=== PATIENT | male | born 1960 | race Caucasian/White ===

== ENCOUNTER → 2016-07-03 | Outpatient (CLI) | payer OTHER ==
[2016-07-03 10:19] LABS: CHLORIDE,CL 107 mmol/L (98-110); SODIUM,NA 142 mmol/L (136-146)
== END | disposition home or self-care (01) ==
LOC: MW.CHRC 09:17
PROVIDERS: ATTEND Family Medicine
DX: I10 Essential (primary) hypertension (principal); E78.00 Pure hypercholesterolemia, unspecified; G40.309 Generalized idiopathic epilepsy and epileptic syndromes, not intractable, without status epilepticus; E03.9 Hypothyroidism, unspecified
CPT/HCPCS: 36415; 80053; 80061; 83036; 99215

== ENCOUNTER → 2016-08-06 | Outpatient (CLI) | payer OTHER | LOC: MW.CHNEURO 08:00 | PROVIDERS: ATTEND Psychiatry & Neurology Neuromuscular Medicine | DX: R56.9 Unspecified convulsions (principal); G62.9 Polyneuropathy, unspecified | CPT/HCPCS: 99204 ==

== ENCOUNTER 2016-12-06 10:33 | Day surgery (SDC) | payer OTHER ==
[~2016-12-06 10:33] MED LIST: Lactated Ringers 1,000 ML IV SCH; Midazolam 1 MG/ML 2 ML SDV ONE; Propofol 200 MG/20 ML SDV ONE
--- NOTE | 2016-12-06 12:39 | PCM.PREANE ---
Preanesthetic Assessment - Anesthesia/Transfusion/Family Hx Anesthesia History: Prior Anesthesia Reaction Other Type of Anesthesia Reaction Comment: "when waking up from anesthesia, I need to be sitting up" Transfusion History: No Prior Transfusion(s) - Review of Systems General: No Symptoms - Physical Assessment Height: 1.88 m Weight: 125.192 kg ASA Class: 3 Mental Status: Alert & Oriented x3 Airway Class: Mallampati = 1 Dentition: Reports: [place](s) ROM/Head Extension: Full Lungs: Clear to Auscultation, Normal Respiratory Effort Cardiovascular: Regular Rate, Regular Rhythm - Allergies Allergies/Adverse Reactions: Allergies Allergy/AdvReac Type Severity Reaction Status Date / Time No Known Allergies Allergy Verified 09/03/13 07:04 - Anesthesia Plan Pre-Op Medication Ordered: None - Acknowledgements Anesthesia Type Planned: MAC Pt an Appropriate Candidate for the Planned Anesthesia: Yes Alternatives and Risks of Anesthesia Discussed w Pt/Guardian: Yes Pt/Guardian Understands and Agrees with Anesthesia Plan: Yes Additional Comments: CAD with stent placed 10 yr ago, last ASA yesterday, on no seizure meds, last seizure June of this year. Wants to besi sitting when induced and upon awakening. PreAnesthesia Questionnaire HEENT History: Reports: Other (See Below) Other HEENT History: wears glasses Cardiovascular History: Reports: CAD, High Cholesterol, Hypertension, Stents Respiratory History: Reports: None Gastrointestinal History: Reports: Colon Polyp Genitourinary History: Reports: None Neurological History: Reports: Seizure Other Neuro History: last seizure in june 2016 Psychiatric History: Reports: Anxiety Endocrine/Metabolic History: Reports: Hypothyroidism, Obesity/BMI 30+ Oncologic (Cancer) History: Reports: Colon, Lung - Past Surgical History Head Surgeries/Procedures: Reports: None Cardiovascular Surgical History: Reports: Coronary Artery Stent Other Respiratory Surgeries/Procedures: hx wedge resection of lung for cancer GI Surgical History: Reports: Colon, Colonoscopy, Hernia, Abdominal, Hernia, Inguinal, Other (See Below) Other GI Surgeries/Procedures: inguinal hernia repair x2, umbilical hernia repair, partial colectomy with coloproctostomy for colon cancer Male Surgical History: Reports: Vasectomy Musculoskeletal Surgical History: Reports: Other (See Below) Other Musculoskeletal Surgeries/Procedures:: rt bicep tendon repair - SUBSTANCE USE Smoking Status *Q: Former Smoker Tobacco Use Within Last Twelve Months: No Days Per Week of Alcohol Use: 0 Number of Drinks Per Day: 0 Total Drinks Per Week: 0 Recreational Drug Use History: No - HOME MEDS Home Medications: Home Meds Aspirin [Children's Aspirin] 81 mg PO DAILY 09/02/13 [History] Furosemide [Lasix] 40 mg PO DAILY 09/02/13 [History] Levothyroxine 125 mcg PO ACBRK 09/02/13 [History] Metoprolol Succinate [Toprol XL] 50 mg PO BID 09/02/13 [History] Ramipril [Altace] 10 mg PO ACBRK 09/02/13 [History] atorvaSTATin [Lipitor] 40 mg PO BEDTIME 09/02/13 [History] Docusate Sodium [Dulcolax Stool Softener] 1 tab PO DAILY 12/04/16 [History] Multivits-Minerals/FA/Lycopene [One Daily Men's Health Tablet] 1 tab PO DAILY [History] - CURRENT (IN HOUSE) MEDS Current Meds: Current Medications Lactated Ringer's (Ringers, Lactated) 1,000 mls @ 125 mls/hr IV ASDIRECTED DIAN Discontinued Medications Midazolam HCl (Versed 1 Mg/Ml) Confirm Administered Dose 2 mg .ROUTE .STK-MED ONE Stop: 12/06/16 10:22 Propofol (Diprivan 20 Ml) Confirm Administered Dose 400 mg .ROUTE .STK-MED ONE Stop: 12/06/16 10:21
[2016-12-06] MEDS ORDERED: Propofol 200 MG/20 ML SDV ONE (14:19)
--- NOTE | 2016-12-06 14:48 | PCM.OPNOTE ---
- General Post-Op/Procedure Note Date of Surgery/Procedure: 12/06/16 Operative Procedure(s): Colonoscopy with ascending colon biopsy Pre Op Diagnosis: Personal history of colon polyps Post-Op Diagnosis: Nonspecific colitis. Mild diverticulosis. Anesthesia Technique: MAC (ASA III) Primary Surgeon: Ean Pierre Interior Decorator Painting: Swetha Borjas Fluid Replacement, Intraop: 1,200 Condition: Good Free Text/Narrative:: Dictation [id number] CPT CODE [id number]
--- NOTE | 2016-12-06 14:55 | PCM.POSTAN ---
POST ANESTHESIA ASSESSMENT - MENTAL STATUS Mental Status: Alert, Oriented - RESPIRATORY Respiratory Status: Respiratory Rate WNL, Airway Patent - CARDIOVASCULAR CV Status: Pulse Rate WNL - GASTROINTESTINAL GI Status: No Symptoms - POST OP HYDRATION Hydration Status: Adequate & Stable
--- NOTE | 2016-12-06 14:55 | PCM48HPAN ---
Post Anesthesia Note - EVALUATION WITHIN 48HRS OF ANESTHETIC Vital Signs in Normal Range: Yes Patient Participated in Evaluation: Yes Respiratory Function Stable: Yes Airway Patent: Yes Cardiovascular Function Stable: Yes Hydration Status Stable: Yes Pain Control Satisfactory: Yes Nausea and Vomiting Control Satisfactory: Yes Mental Status Recovered: Yes
[2016-12-06] MEDS ORDERED: Lactated Ringers 1,000 ML IV SCH (15:00)
[2016-12-06 15:37] VITALS: BP 145/86
--- NOTE | 2016-12-06 19:41 | OR ---
SURGEON: Ean Pierre M.D. DATE OF PROCEDURE: 12/06/2016 OPERATION PERFORMED: Colonoscopy with cecal biopsy. ANESTHESIA: MAC. ASA CLASSIFICATION: III. PREOPERATIVE DIAGNOSIS: Personal history of colon cancer. POSTOPERATIVE DIAGNOSES: 1. Nonspecific changes in the cecum. 2. Mild diverticulosis. DESCRIPTION OF PROCEDURE: The patient was taken to the endoscopy room, positioned on the endoscopy table in the left lateral decubitus position. Time-out was called for appropriate identification of the patient and procedure. Monitored anesthesia care was provided. The colonoscope was inserted into the rectum and advanced with moderate difficulty to the cecum where the colonoscope was retroflexed to visualize the ascending colon from below. The colonoscope was then straightened and slowly withdrawn. Cecum does show some mild inflammatory changes and biopsies of this area were taken. The cecum, ascending colon, hepatic flexure, transverse colon, splenic flexure, descending colon, sigmoid colon, and rectum were very well visualized. Other than some minor diverticular changes, no other lesions were identified. There was no evidence of inflammatory bowel disease. No angiodysplasia was noted. As the colonoscope was withdrawn through the rectum, the anastomosis was easily seen. This was widely patent and shows no evidence of recurrent disease. Once the colonoscope was withdrawn to the distal rectum, it was retroflexed to visualize the anal orifice from above. No tumors, polyps, or acute hemorrhoidal changes were noted. The colonoscope was then straightened, the rectum aspirated, and the colonoscope removed. The patient tolerated the procedure well and was taken to recovery room in stable condition. MANUEL LARA /[id number]
== END 2016-12-06 15:20 | disposition home or self-care (01) ==
LOC: MW.SDS 10:33
PROVIDERS: ATTEND Surgery
DX: Z12.11 Encounter for screening for malignant neoplasm of colon (principal); K52.9 Noninfective gastroenteritis and colitis, unspecified; K57.30 Diverticulosis of large intestine without perforation or abscess without bleeding; I25.10 Atherosclerotic heart disease of native coronary artery without angina pectoris; I10 Essential (primary) hypertension; E78.00 Pure hypercholesterolemia, unspecified; F41.9 Anxiety disorder, unspecified; E03.9 Hypothyroidism, unspecified; Z79.82 Long term (current) use of aspirin; Z79.899 Other long term (current) drug therapy; Z98.890 Other specified postprocedural states; Z98.52 Vasectomy status; Z90.49 Acquired absence of other specified parts of digestive tract; Z87.891 Personal history of nicotine dependence
CPT/HCPCS: 45380; 88305; J2250; 00810; J2704

== ENCOUNTER 2017-05-22 00:02 | Emergency (ER) | payer OTHER ==
[2017-05-22] MEDS ORDERED: Aspirin 81 MG Tab.Chew PO ONE (00:08)
--- NOTE | 2017-05-22 00:10 | EDM.PDOC ---
ED HPI GENERAL MEDICAL PROBLEM - General Chief Complaint: Chest Pain Stated Complaint: CHEST PAIN Time Seen by Provider: 05/22/17 00:09 Source of Information: Reports: Patient - History of Present Illness INITIAL COMMENTS - FREE TEXT/NARRATIVE: HISTORY AND PHYSICAL: History of present illness: [Patient presents with chest pain/discomfort rates 3 out of 10 no radiation arm neck or jaw no diaphoresis. Redness of breath but he does note that the pain is worse on deep inspiration he states it is similar to pleurisy he has had in the past no fever nausea vomiting chills sweats no headache dizziness or palpitation no bowel or urine symptoms ] I can worsen some chest discomfort with palpation of the anterior chest wall Patient has stent history, stents performed 10 years prior in [place] by Dr. Murphy Review of systems: As per history of present illness and below otherwise all systems reviewed and negative. Past medical history: As per history of present illness and as reviewed below otherwise noncontributory. Surgical history: As per history of present illness and as reviewed below otherwise noncontributory. Social history: No reported history of drug or alcohol abuse. Family history: As per history of present illness and as reviewed below otherwise noncontributory. Physical exam: HEENT: Atraumatic, normocephalic, pupils reactive, negative for conjunctival pallor or scleral icterus, mucous membranes moist, throat clear, neck supple, nontender, trachea midline. Lungs: Clear to auscultation, breath sounds equal bilaterally, I can reproduce some pain with palpation of anterior chest wall Heart: S1S2, regular, negative for clicks, rubs, or JVD. Abdomen: Soft, nondistended, nontender. Negative for masses or hepatosplenomegaly. Negative for costovertebral tenderness. Pelvis: Stable nontender. Genitourinary: Deferred. Rectal: Deferred. Extremities: Atraumatic, negative for cords or calf pain. Neurovascular unremarkable. Neuro: Awake, alert, oriented. Cranial nerves II through XII unremarkable. Cerebellum unremarkable. Motor and sensory unremarkable throughout. Exam nonfocal. Diagnostics: [CBC CMP troponin EKG Chest 1 view ] Therapeutics: [Normal saline 500 mL per hour Aspirin 324 mg chewable 30 mg IV Nitroglycerin 0.4 sublingual Patienis advised and offered admission for observation telemetry and cardiac rule out due to some improvement of pain with nitroglycerin however he flatly refuses stating that he has served on the EMS and he is aware of cardiac symptoms he would like to follow with his primary care doctor small and ultimate follow-up with our production proofreader. He refuses admission stating he will return if symptoms persist or worsen. ] Impression: Pleuritic chest pain improved Hypertensive emergency-resolved Atypical chest pain component is improved somewhat with nitroglycerin's may be due to the lowering of blood pressure, however it is recommended that the patient be admitted to follow enzymes he flatly refuses stating he'll return if symptoms persist or worsen Definitive disposition and diagnosis as appropriate pending reevaluation and review of above. chest Pain Score (Numeric/FACES): 8 - Related Data Allergies Allergy/AdvReac Type Severity Reaction Status Date / Time No Known Allergies Allergy Verified 05/22/17 00:12 Home Meds: Home Meds Aspirin [Children's Aspirin] 81 mg PO DAILY 09/02/13 [History] Furosemide [Lasix] 40 mg PO DAILY 09/02/13 [History] Levothyroxine 125 mcg PO DAILY 09/02/13 [History] Metoprolol Succinate [Toprol XL] 25 mg PO BID 09/02/13 [History] Ramipril [Altace] 10 mg PO DAILY 09/02/13 [History] atorvaSTATin [Lipitor] 40 mg PO BEDTIME 09/02/13 [History] Multivits-Minerals/FA/Lycopene [One Daily Men's Health Tablet] 1 tab PO DAILY [History] Cholecalciferol (Vitamin D3) [Vitamin D3] 5,000 unit PO DAILY 05/22/17 [History] Cyanocobalamin (Vitamin B-12) [Vitamin B-12] 1 tab PO DAILY 05/22/17 [History] Keybiotics 05/22/17 [History] Vitamin K2 90 mcg PO DAILY 05/22/17 [History] Past Medical History HEENT History: Reports: Other (See Below) Other HEENT History: wears glasses Cardiovascular History: Reports: CAD, High Cholesterol, Hypertension, Stents Respiratory History: Reports: None Gastrointestinal History: Reports: Colon Polyp Genitourinary History: Reports: None Neurological History: Reports: Seizure Other Neuro History: last seizure in june 2016 Psychiatric History: Reports: Anxiety Endocrine/Metabolic History: Reports: Hypothyroidism, Obesity/BMI 30+ Oncologic (Cancer) History: Reports: Colon, Lung - Past Surgical History Head Surgeries/Procedures: Reports: None Cardiovascular Surgical History: Reports: Coronary Artery Stent Other Respiratory Surgeries/Procedures: hx wedge resection of lung for cancer GI Surgical History: Reports: Colon, Colonoscopy, Hernia, Abdominal, Hernia, Inguinal, Other (See Below) Other GI Surgeries/Procedures: inguinal hernia repair x2, umbilical hernia repair, partial colectomy with coloproctostomy for colon cancer Male Surgical History: Reports: Vasectomy Musculoskeletal Surgical History: Reports: Other (See Below) Other Musculoskeletal Surgeries/Procedures:: rt bicep tendon repair Social & Family History - Tobacco Use Smoking Status *Q: Former Smoker Used Tobacco, but Quit: Yes Month Tobacco Last Used: quit smoking over 8 yrs ago - Alcohol Use Days Per Week of Alcohol Use: 0 Number of Drinks Per Day: 0 Total Drinks Per Week: 0 - Recreational Drug Use Recreational Drug Use: No Drug Use in Last 12 Months: No ED ROS GENERAL - Review of Systems Review Of Systems: ROS reveals no pertinent complaints other than HPI. ED EXAM, GENERAL - Physical Exam Exam: See Below Course - Vital Signs Last Recorded V/S: Last Vital Signs Temp 98.8 F 05/22/17 00:02 Pulse 84 05/22/17 00:39 Resp 17 05/22/17 00:39 BP 150/80 H 05/22/17 00:39 Pulse Ox 95 05/22/17 00:39 - Orders/Labs/Meds Orders: Active Orders 24 hr Category Date Time Status EKG Documentation Completion [RC] STAT Care 05/22/17 00:08 Active Chest 1V Frontal [CR] Stat Exams 05/22/17 00:08 Taken UA W/MICROSCOPIC [URIN] Stat Lab 05/22/17 00:08 Ordered Sodium Chloride 0.9% [Normal Saline] 500 ml Med 05/22/17 00:45 Active IV .BOLUS Medication Orders Sodium Chloride (Normal Saline) 500 mls @ 125 mls/hr IV .BOLUS DIAN Last Admin: 05/22/17 00:34 Dose: 125 mls/hr Labs: Laboratory Tests 05/22/17 05/22/17 05/22/17 Range/Units 00:18 00:18 00:18 WBC 11.29 H (4.0-11.0) K/uL RBC 4.81 (4.50-5.90) M/uL Hgb 14.9 (13.0-17.0) g/dL Hct 44.5 (38.0-50.0) % MCV 92.5 (80.0-98.0) fL MCH 31.0 (27.0-32.0) pg MCHC 33.5 (31.0-37.0) g/dL RDW Std Deviation 45.2 (28.0-62.0) fl RDW Coeff of Brii 13 (11.0-15.0) % Plt Count 163 (150-400) K/uL MPV 10.10 (7.40-12.00) fL Neut % (Auto) 77.7 (48.0-80.0) % Lymph % (Auto) 11.3 L (16.0-40.0) % Schleicher % (Auto) 9.8 (0.0-15.0) % Eos % (Auto) 0.9 (0.0-7.0) % Baso % (Auto) 0.3 (0.0-1.5) % Neut # (Auto) 8.8 H (1.4-5.7) K/uL Lymph # (Auto) 1.3 (0.6-2.4) K/uL Schleicher # (Auto) 1.1 H (0.0-0.8) K/uL Eos # (Auto) 0.1 (0.0-0.7) K/uL Baso # (Auto) 0.0 (0.0-0.1) K/uL Nucleated RBC % 0.0 /100WBC Nucleated RBCs # 0 K/uL INR 0.98 Sodium 142 (136-146) mmol/L Potassium 4.2 (3.5-5.1) mmol/L Chloride 106 (98-110) mmol/L Carbon Dioxide 25 (21-31) mmol/L BUN 16 (6.0-23.0) mg/dL Creatinine 1.0 (0.6-1.5) mg/dL Est Cr Clr Drug Dosing 92.48 mL/min Estimated GFR (MDRD) > 60.0 ml/min Glucose 89 (60-110) mg/dL Calcium 10.1 (8.8-10.8) mg/dL Total Bilirubin 0.4 (0.1-1.5) mg/dL AST 24 (5-40) IU/L ALT 27 (8-54) IU/L Alkaline Phosphatase 99 (40-150) Troponin I < 0.10 (0.0-0.29) NG/ML Total Protein 8.0 (6.0-8.0) g/dL Albumin 4.5 (3.5-5.0) g/dL Globulin 3.5 (2.0-3.5) g/dL Albumin/Globulin Ratio 1.3 (1.3-2.8) Meds: Medications Generic Name Dose Route Start Last Admin Trade Name Freq PRN Reason Stop Dose Admin Sodium Chloride 500 mls @ 125 mls/hr 05/22/17 00:45 05/22/17 00:34 Normal Saline IV 125 mls/hr .BOLUS DIAN Administration Discontinued Medications Generic Name Dose Route Start Last Admin Trade Name Freq PRN Reason Stop Dose Admin Aspirin 324 mg 05/22/17 00:08 05/22/17 00:23 Aspirin PO 05/22/17 00:09 324 mg ONETIME ONE Administration Sodium Chloride 1,000 mls @ 125 mls/hr 05/22/17 00:15 Normal Saline IV STAT DIAN Nitroglycerin 0.4 mg 05/22/17 00:14 05/22/17 00:35 Nitrostat SL 0.4 mg Q5M PRN Administration Chest Pain Departure - Departure Time of Disposition: 01:50 Disposition: Home, Self-Care 01 Condition: Fair Clinical Impression: Hypertensive emergency, Atypical chest pain, Pleuritic chest pain - Discharge Information Forms: ED Department Discharge Additional Instructions: Medication as prescribed-Cataflam prescribed for pleuritic chest pain As you have declined admission certainly if symptoms were to persist or worsen radiation arm neck or jaw please return to emergency room for evaluation Follow-up with Dr. zhou within 2 weeks The following information is given to patients seen in the emergency department who are being discharged to home. This information is to outline your options for follow-up care. We provide all patients seen in our emergency department with a follow-up referral. The need for follow-up, as well as the timing and circumstances, are variable depending upon the specifics of your emergency department visit. If you don't have a primary care physician on staff, we will provide you with a referral. We always advise you to contact your personal physician following an emergency department visit to inform them of the circumstance of the visit and for follow-up with them and/or the need for any referrals to a consulting specialist. The emergency department will also refer you to a specialist when appropriate. This referral assures that you have the opportunity for follow-up care with a specialist. All of these measure are taken in an effort to provide you with optimal care, which includes your follow-up. Under all circumstances we always encourage you to contact your private physician who remains a resource for coordinating your care. When calling for follow-up care, please make the office aware that this follow-up is from your recent emergency room visit. If for any reason you are refused follow-up, please contact the [facility] emergency department at and asked to speak to the emergency department charge nurse. - My Orders Last 24 Hours: My Active Orders 05/22/17 00:08 EKG Documentation Completion [RC] STAT Chest 1V Frontal [CR] Stat UA W/MICROSCOPIC [URIN] Stat 05/22/17 00:45 Sodium Chloride 0.9% [Normal Saline] 500 ml IV .BOLUS - Assessment/Plan Last 24 Hours: My Active Orders 05/22/17 00:08 EKG Documentation Completion [RC] STAT Chest 1V Frontal [CR] Stat UA W/MICROSCOPIC [URIN] Stat 05/22/17 00:45 Sodium Chloride 0.9% [Normal Saline] 500 ml IV .BOLUS
[2017-05-22] MEDS ORDERED: Sodium Chloride 0.9% 1,000 ML IV SCH (00:15)
[2017-05-22] MEDS: Nitroglycerin 0.4 MG Tab.SL SL PRN ×3 (00:24→00:35)
[2017-05-22] MEDS ORDERED: Sodium Chloride 0.9% 500 ML IV SCH (00:45)
[2017-05-22 01:32] LABS: CHLORIDE,CL 106 mmol/L (98-110); SODIUM,NA 142 mmol/L (136-146)
[2017-05-22] MEDS ORDERED: Ketorolac 30 MG/ML SDV IVPUSH ONE (01:46)
[2017-05-22 02:25] VITALS: BP 150/99
--- NOTE | 2017-05-22 14:35 | CR ---
EXAM DATE: 05/22/17 PATIENT'S AGE: 57 Patient: CELY JIMENEZ Facility: [place], [place] Site . Site : 1960 Study: XRay Chest [id number]/22/2018 12:36:59 AM Ordering Physician: Aicha Brown Final Report: INDICATION: Cough, shortness of breath, chest pain TECHNIQUE: Chest 1 view. COMPARISON: Atelectasis right mid lung. FINDINGS: Cardiovascular and mediastinum: Heart size upper limits of normal. Mediastinum is within normal limits. Lungs and pleural space: Lungs are clear. No sign of infiltrate or mass. No sign of pleural effusion. No pneumothorax. Bones and soft tissues: No significant findings. IMPRESSION: No acute pulmonary or cardiac abnormalities. Atelectasis right mid lung. Dictated by Paul Rodriguez MD @ 05/22/2017 12:39:58 AM Dictated by: Paul Rodriguez MD @ 05/22/2017 00:40:06 (Electronic Signature) Report Signed by Proxy. ALFREDO
== END 2017-05-22 02:20 | disposition home or self-care (01) ==
LOC: MW.ED 00:02
DX: I16.1 Hypertensive emergency (principal); E78.00 Pure hypercholesterolemia, unspecified; I10 Essential (primary) hypertension; E03.9 Hypothyroidism, unspecified; Z79.82 Long term (current) use of aspirin; Z79.899 Other long term (current) drug therapy; Z87.891 Personal history of nicotine dependence
CPT/HCPCS: 71045; 80053; 84484; 85025; 85610; 93005; 96361; 96374; 99285; A9270; J1885; J7040; 99284

== ENCOUNTER 2019-10-22 08:23 | Day surgery (SDC) | payer OTHER ==
[~2019-10-22 08:23] MED LIST changes: +Lidocaine 2% 5 ML SDV ONE; -Midazolam 1 MG/ML 2 ML SDV ONE; +fentaNYL 100 MCG/2 ML SDV ONE
--- NOTE | 2019-10-22 09:07 | PCM.PREANE ---
Preanesthetic Assessment - Anesthesia/Transfusion/Family Hx Anesthesia History: Prior Anesthesia Without Reaction Other Type of Anesthesia Reaction Comment: "when waking up from anesthesia, I need to be sitting up" Family History of Anesthesia Reaction: No Transfusion History: No Prior Transfusion(s) Intubation History: Unknown - Review of Systems General: No Symptoms Pulmonary: No Symptoms Cardiovascular: No Symptoms Gastrointestinal: No Symptoms, Other (personal h/o colon cancer with lung metastatsis) Neurological: No Symptoms Other: Reports: None - Physical Assessment Height: 6 ft 2 in Weight: 126.552 kg ASA Class: 3 Mental Status: Alert & Oriented x3 Airway Class: Mallampati = 2 Dentition: Reports: Normal Dentition, [place](s) (x1 upper front (left)) Thyro-Mental Finger Breadths: 3 Mouth Opening Finger Breadths: 3 ROM/Head Extension: Full Lungs: Clear to Auscultation, Normal Respiratory Effort Cardiovascular: Regular Rate, Regular Rhythm, Other (slight diastolic murmer over mitral valve) - Allergies Allergies/Adverse Reactions: Allergies Allergy/AdvReac Type Severity Reaction Status Date / Time No Known Allergies Allergy Verified 10/18/19 13:33 - Blood Blood Available: No - Anesthesia Plan Pre-Op Medication Ordered: None - Acknowledgements Anesthesia Type Planned: MAC Pt an Appropriate Candidate for the Planned Anesthesia: Yes Alternatives and Risks of Anesthesia Discussed w Pt/Guardian: Yes Pt/Guardian Understands and Agrees with Anesthesia Plan: Yes PreAnesthesia Questionnaire HEENT History: Reports: Other (See Below) Other HEENT History: wears glasses Cardiovascular History: Reports: CAD, High Cholesterol, Hypertension, Stents (x1 '07 - ok since), Other (See Below) Other Cardiovascular History: mitral regurgitation (mild) Respiratory History: Reports: COPD, Other (See Below) Other Respiratory History: colon cancer with pulmonary metastasis, first one treated with wedge resection, second one with radiation Gastrointestinal History: Reports: Colon Polyp Genitourinary History: Reports: None Musculoskeletal History: Reports: Arthritis Neurological History: Reports: Seizure Other Neuro History: grand mal - twice in his lifetime - last seizure in june 2016 - unknow cause. Peripheral neuropathy Psychiatric History: Reports: Anxiety Endocrine/Metabolic History: Reports: Hypothyroidism, Obesity/BMI 30+ (BMI 35.8) Hematologic History: Reports: None Immunologic History: Reports: None Oncologic (Cancer) History: Reports: Colon, Lung Dermatologic History: Reports: None - Past Surgical History Head Surgeries/Procedures: Reports: None HEENT Surgical History: Reports: None Cardiovascular Surgical History: Reports: Coronary Artery Stent Respiratory Surgical History: Reports: Thoracotomy, Other (See Below) Other Respiratory Surgeries/Procedures: hx wedge resection of rt lung for cancer, GI Surgical History: Reports: Colon, Colonoscopy (last one 2016), Hernia, Abdominal, Hernia, Inguinal, Other (See Below) Other GI Surgeries/Procedures: inguinal hernia repair x2, umbilical hernia repair, partial colectomy with coloproctostomy for colon cancer Male Surgical History: Reports: Vasectomy Endocrine Surgical History: Reports: None Neurological Surgical History: Reports: None Musculoskeletal Surgical History: Reports: Other (See Below) Other Musculoskeletal Surgeries/Procedures:: rt bicep tendon repair Oncologic Surgical History: Reports: Other (See Below) Other Oncologic Surgeries/Procedures: wedge resection-rt lung, lap assisted low anterior resection with coloproctostomy Dermatological Surgical History: Reports: None - SUBSTANCE USE Smoking Status *Q: Never Smoker Tobacco Use Within Last Twelve Months: No - HOME MEDS Home Medications: Home Meds Aspirin [Children's Aspirin] 81 mg PO DAILY 09/02/13 [History] Furosemide [Lasix] 40 mg PO DAILY 09/02/13 [History] Metoprolol Succinate [Toprol XL] 50 mg PO BID 09/02/13 [History] Ramipril [Altace] 10 mg PO DAILY 09/02/13 [History] atorvaSTATin [Lipitor] 40 mg PO BEDTIME 09/02/13 [History] Albuterol/Ipratropium [Combivent Respimat] 1 puff INH ASDIRECTED PRN 10/18/19 [History] Docusate Sodium [Dulcolax Stool Softener] 100 mg PO DAILY 10/18/19 [History] Levothyroxine Sodium 137 mcg PO DAILY 10/18/19 [History] Nitroglycerin 0.4 mg SL ASDIRECTED PRN 10/18/19 [History] amLODIPine Besylate [Amlodipine Besylate] 5 mg PO DAILY 10/18/19 [History] diazePAM [Valium] 5 mg PO BID PRN 10/18/19 [History] - CURRENT (IN HOUSE) MEDS Current Meds: Current Medications Lactated Ringer's (Ringers, Lactated) 1,000 mls @ 125 mls/hr IV ASDIRECTED DIAN Discontinued Medications Fentanyl (Sublimaze) Confirm Administered Dose 100 mcg .ROUTE .STK-MED ONE Stop: 10/22/19 07:08 Lidocaine (Xylocaine-Mpf 2%) Confirm Administered Dose 5 ml .ROUTE .STK-MED ONE Stop: 10/22/19 07:08 Propofol (Diprivan 20 Ml) Confirm Administered Dose 400 mg .ROUTE .STK-MED ONE Stop: 10/22/19 07:08
[2019-10-22] MEDS ORDERED: Midazolam 1 MG/ML 2 ML SDV ONE (09:20)
[2019-10-22] MEDS ORDERED: Lactated Ringers 1,000 ML IV SCH (10:00)
--- NOTE | 2019-10-22 10:02 | PCM.OPNOTE ---
- General Post-Op/Procedure Note Date of Surgery/Procedure: 10/22/19 Operative Procedure(s): Colonoscopy Pre Op Diagnosis: Personal history of colorectal cancer Post-Op Diagnosis: No evidence of neoplasia Anesthesia Technique: MAC (ASA III) Primary Surgeon: Ean Pierre Window/Distribution Clerk: Ade Stockton Condition: Good Free Text/Narrative:: DICTATION [id number] CPT CODE [id number]
--- NOTE | 2019-10-22 10:29 | PCM.POSTAN ---
POST ANESTHESIA ASSESSMENT - MENTAL STATUS Mental Status: Alert, Oriented - VITAL SIGNS Vital Signs: Last Vital Signs Temp 37.1 C 10/22/19 08:30 Pulse 63 10/22/19 10:13 Resp 17 10/22/19 10:13 BP 129/77 10/22/19 10:13 Pulse Ox 94 L 10/22/19 10:13 - RESPIRATORY Respiratory Status: Respiratory Rate WNL, Airway Patent, O2 Saturation Stable - CARDIOVASCULAR CV Status: Pulse Rate WNL, Blood Pressure Stable - GASTROINTESTINAL GI Status: No Symptoms - PAIN Pain Score: 0 - POST OP HYDRATION Hydration Status: Adequate & Stable - OBSERVATIONS Free Text/Narrative:: No anesthesia problems
--- NOTE | 2019-10-22 10:35 | PCM48HPAN ---
Post Anesthesia Note - EVALUATION WITHIN 48HRS OF ANESTHETIC Vital Signs in Normal Range: Yes Patient Participated in Evaluation: Yes Respiratory Function Stable: Yes Airway Patent: Yes Cardiovascular Function Stable: Yes Hydration Status Stable: Yes Pain Control Satisfactory: Yes Nausea and Vomiting Control Satisfactory: Yes Mental Status Recovered: Yes Vital Signs: Last Vital Signs Temp 37.1 C 10/22/19 08:30 Pulse 63 10/22/19 10:13 Resp 17 10/22/19 10:13 BP 129/77 10/22/19 10:13 Pulse Ox 94 L 10/22/19 10:13 - COMMENTS/OBSERVATIONS Free Text/Narrative:: No anesthesia problems
[2019-10-22 13:22] VITALS: BP 130/81; PULSE 64
--- NOTE | 2019-10-22 16:39 | OR ---
SURGEON: Ean Pierre M.D. DATE OF PROCEDURE: 10/22/2019 OPERATION PERFORMED: Colonoscopy. PRIMARY SURGEON: Ean Pierre MD COSMETIC SALES: [employer]iler Fitter: JAIME Moyer student. ANESTHESIA: MAC. ASA CLASSIFICATION: III. PREOPERATIVE DIAGNOSIS: Personal history of colon cancer. POSTOPERATIVE DIAGNOSIS: No evidence of neoplasia. DESCRIPTION OF PROCEDURE: The patient was taken to the endoscopy room and positioned on the endoscopy table in the left lateral decubitus position. Time-out was called for appropriate identification of the patient and procedure. Monitored anesthesia care was provided. The colonoscope was inserted into the rectum and advanced with minimal difficulty to the cecum. The cecum was identified by internal landmarks and external pressure. The colonoscope was retroflexed to visualize the ascending colon from below, then straightened and slowly withdrawn. The cecum, ascending colon, hepatic flexure, transverse colon, splenic flexure, descending colon, sigmoid colon, and rectum were very well visualized. No tumors, polyps, diverticula, or angiodysplastic changes were noted. The anastomosis was easily seen and identified. It was widely patent and showed no evidence of recurrent disease. The colonoscope was then withdrawn to the distal rectum and retroflexed to visualize the anal orifice from above. Again, no tumors or polyps were seen and there were no acute hemorrhoidal changes. The colonoscope was then straightened, the rectum aspirated, and the colonoscope removed. The patient tolerated the procedure well and was taken to recovery room in stable condition. MANUEL / JANE /[id number]
== END 2019-10-22 10:40 | disposition home or self-care (01) ==
LOC: MW.SDS 08:23
PROVIDERS: ATTEND Surgery
DX: Z12.11 Encounter for screening for malignant neoplasm of colon (principal); E03.9 Hypothyroidism, unspecified; F41.9 Anxiety disorder, unspecified; I10 Essential (primary) hypertension; I25.10 Atherosclerotic heart disease of native coronary artery without angina pectoris; J44.9 Chronic obstructive pulmonary disease, unspecified; E78.00 Pure hypercholesterolemia, unspecified; I34.0 Nonrheumatic mitral (valve) insufficiency; G62.9 Polyneuropathy, unspecified; R56.9 Unspecified convulsions; E66.9 Obesity, unspecified; R73.01 Impaired fasting glucose; Z85.038 Personal history of other malignant neoplasm of large intestine; Z79.82 Long term (current) use of aspirin; Z79.899 Other long term (current) drug therapy; Z79.890 Hormone replacement therapy; Z90.49 Acquired absence of other specified parts of digestive tract; Z87.891 Personal history of nicotine dependence; Z72.89 Other problems related to lifestyle; Z79.51 Long term (current) use of inhaled steroids; Z93.3 Colostomy status; Z68.35 Body mass index [BMI] 35.0-35.9, adult; Z95.5 Presence of coronary angioplasty implant and graft; Z90.2 Acquired absence of lung [part of]
CPT/HCPCS: 45378; J2001; J2250; J2704; J3010; J7120

== ENCOUNTER 2022-03-18 11:13 | Day surgery (SDC) | payer OTHER ==
[~2022-03-18 11:13] MED LIST changes: -Lidocaine 2% 5 ML SDV ONE; -Propofol 200 MG/20 ML SDV ONE; -fentaNYL 100 MCG/2 ML SDV ONE
[2022-03-18] MEDS ORDERED: propofoL 50 ML ONE (13:10)
[2022-03-18] MEDS ORDERED: fentaNYL 100 MCG/2 ML SDV ONE (13:11)
[2022-03-18] MEDS ORDERED: Lidocaine 2% 5 ML SDV ONE (13:11)
[2022-03-18] MEDS ORDERED: Propofol 200 MG/20 ML SDV ONE (13:59)
[2022-03-18 14:27] VITALS: PULSE 68
[2022-03-18] MEDS ORDERED: Lactated Ringers 1,000 ML IV SCH (14:30)
[2022-03-18 15:03] VITALS: BP 103/68
== END 2022-03-18 15:00 | disposition home or self-care (01) ==
LOC: MW.SDS 11:13
PROVIDERS: ATTEND Surgery
DX: Z12.11 Encounter for screening for malignant neoplasm of colon (principal); D12.2 Benign neoplasm of ascending colon; D12.3 Benign neoplasm of transverse colon; K57.30 Diverticulosis of large intestine without perforation or abscess without bleeding; F41.9 Anxiety disorder, unspecified; E03.9 Hypothyroidism, unspecified; I10 Essential (primary) hypertension; I25.10 Atherosclerotic heart disease of native coronary artery without angina pectoris; J44.9 Chronic obstructive pulmonary disease, unspecified; E78.00 Pure hypercholesterolemia, unspecified; F32.1 Major depressive disorder, single episode, moderate; G62.9 Polyneuropathy, unspecified; R73.03 Prediabetes; M19.90 Unspecified osteoarthritis, unspecified site; E66.9 Obesity, unspecified; Z86.010 Personal history of colon polyps; Z79.899 Other long term (current) drug therapy; Z79.82 Long term (current) use of aspirin; Z79.890 Hormone replacement therapy; Z98.890 Other specified postprocedural states; Z87.891 Personal history of nicotine dependence; Z95.5 Presence of coronary angioplasty implant and graft; Z68.36 Body mass index [BMI] 36.0-36.9, adult
CPT/HCPCS: 45380; J2704; J3010; J7120